=== PATIENT | male | born 1945 | race Caucasian/White ===

== ENCOUNTER 2020-01-13 23:15 | Inpatient (IN) | payer MEDICARE ==
[2020-01-14] MEDS ORDERED: KETOROLAC 30 MG/ML INJ ONE (00:41)
[2020-01-14 00:45] LABS: Urine Blood 2+ (NEG); Urine Glucose NEGATIVE (NEG); Urine Protein 2+ (NEG)
[2020-01-14 01:31] LABS: Absolute Lymphocytes (CBC) 0.7 K/uL (0.7-4.9); Basophils % 0.5 % (0-1.3); Hematocrit 29.6 % (39.6-49.0); Lymphocytes % 4.8 % (15.3-44.8); MPV 7.8 fL (7.6-11.3); RBC Red Blood Cell Count 2.87 M/uL (4.33-5.43)
[2020-01-14] MEDS ORDERED: MORPHINE 2 MG/ML SYR ONE ×2 (01:32→02:19)
[2020-01-14 01:43] LABS: Albumin 3.3 g/dL (3.4-5.0); Bilirubin Direct 0.3 mg/dL (0-0.2); Bilirubin Total 0.6 mg/dL (0.2-1.0); Potassium 4.9 mmol/L (3.5-5.1); Protein, Total 7.5 g/dL (6.4-8.2)
--- NOTE | 2020-01-14 02:09 | ER ---
Nurse's Notes [facility] Name: Omar Hogan Age: 74 yrs Sex: Male : 1945 Arrival Date: 01/13/2020 Time: 23:18 Bed 2 Private MD: Diagnosis: Hypo-osmolality and hyponatremia;Wedge compression fracture of T11-T12 vertebra Presentation: 01/12 23:26 Chief complaint: EMS states: TONED IN FOR LIFT ASSIST. PATIENT FOUND ON THE FLOOR, rv TRYING TO GET UP AND GO TO BED. THEN COMPLAINED OF MID LOWER BACK PAIN, AND ASKED TO BE CHECKED OUT. DENIES LOC OR HEAD INJURY. Coronavirus screen: Client denies travel out of the [place] in the last 14 days. At this time, the client does not indicate any symptoms associated with coronavirus-19. Ebola Screen: No symptoms or risks identified at this time. Initial Sepsis Screen: Does the patient meet any 2 criteria? No. Patient's initial sepsis screen is negative. Does the patient have a suspected source of infection? No. Patient's initial sepsis screen is negative. Risk Assessment: Do you want to hurt yourself or someone else? Patient reports no desire to harm self or others. Onset of symptoms was January 13, 2020 at 22:00. 23:26 Method Of Arrival: EMS: [facility] rv 23:26 Acuity: LINDA 3 rv Triage Assessment: 23:29 General: Appears uncomfortable, Behavior is calm, cooperative. Pain: Complains of pain rv in lumbar area. EENT: No signs and/or symptoms were reported regarding the EENT system. Neuro: Level of Consciousness is awake, alert, obeys commands, Oriented to person, place, time, situation. Cardiovascular: Patient's skin is warm and dry. Respiratory: Airway is patent Respiratory effort is even, unlabored, Breath sounds are clear bilaterally. Derm: Skin is intact. Historical: - Allergies: 23:29 No Known Allergies; rv - PMHx: 23:29 Hypertension; Thyroid problem; rv - PSHx: 23:29 None; rv - Immunization history:: Adult Immunizations up to date. - Social history:: Smoking status: Patient/guardian denies using tobacco, the patient reports quitting approximately 15 years ago. Screenin:30 Abuse screen: Denies threats or abuse. Denies injuries from another. Nutritional rv screening: No deficits noted. Tuberculosis screening: No symptoms or risk factors identified. Fall Risk Fall in past 12 months (25 points). No secondary diagnosis (0 pts). No IV (0 pts). Ambulatory Aid- None/Bed Rest/Nurse Assist (0 pts). Gait- Weak (10 pts.). Mental Status- Overestimates/Forgets Limitations (15 pts.). Total Tena Fall Scale indicates High Risk Score (45 or more points). Fall prevention measures have been instituted. Side Rails Up X 2 Placed Close to Nursing Station Frequent Obs/Assessments Occuring As available patient and family educated on Fall Prevention Program and Strategies. Assessment: 01/13 01:25 Reassessment: CT SCAN REPORT EXPLAINED TO THE PATIENT BY DR CHRISTOPHER. NEW ORDERS rv RECEIVED. LAB TESTS DONE, AWAITING RESULT. PATIENT GIVEN MEDICATION ORDERED. Neuro: Level of Consciousness is awake, alert, obeys commands, Oriented to person, place, time, situation. Respiratory: Airway is patent Respiratory effort is even, unlabored. Musculoskeletal: Reports pain in lumbar area. 02:30 Reassessment: Patient appears in no apparent distress at this time. hospitalist at rr5 bedside examining the patient. Vital Signs: 01/12 23:26 BP 123 / 55; Pulse 72; Resp 18; Temp 97.6; Pulse Ox 98% on R/A; Weight 104.33 kg; rv Height 5 ft. 10 in. (177.80 cm); Pain 5/10; 01/13 00:00 BP 108 / 56; Pulse 76; Resp 18; Pulse Ox 99% on R/A; rv 01:15 BP 121 / 49; Pulse 92; Resp 18; Pulse Ox 97% on R/A; rv 02:00 BP 115 / 54; Pulse 71; Resp 16; Pulse Ox 98% on R/A; rv 03:00 BP 102 / 47; Pulse 74; Resp 18; Temp 98(O); Pulse Ox 98% on R/A; rv 03:54 BP 116 / 60; Pulse 71; Resp 17; Pulse Ox 97% on R/A; rv 01/12 23:26 Body Mass Index 33.00 (104.33 kg, 177.80 cm) rv [place] Coma Score: 00:30 Eye Response: spontaneous(4). Verbal Response: oriented(5). Motor Response: obeys rv commands(6). Total: 15. 01:15 Eye Response: spontaneous(4). Verbal Response: oriented(5). Motor Response: obeys rv commands(6). Total: 15. ED Course: 01/12 23:18 Patient arrived in ED. tw4 23:19 Arie Christopher MD is Attending Physician. tw4 23:26 Leroy Garg RN is Primary Nurse. rv 23:29 Triage completed. rv 23:30 Arm band placed on right wrist. Patient placed in the treatment room, on a stretcher, rv Patient notified of wait time. 23:31 Patient has correct armband on for positive identification. Placed in gown. Bed in low rv position. Call light in reach. Side rails up X2. Pulse ox on. NIBP on. 01/13 00:15 CT Lumbar Spine Wo Con In Process Unspecified. EDMS 00:15 CT Stone Protocol In Process Unspecified. EDMS 01:23 Initial lab(s) drawn, by me, sent to lab. Inserted saline lock: 20 gauge in right rv antecubital area, using aseptic technique. Blood collected. 01:44 Notified ED physician of a critical lab result(s). NA 113, CL 77. sg 02:08 Varun Charles MD is Hospitalizing Provider. tw4 02:35 covid swab sent. rr5 02:45 CT Lumbar Spine Wo Con In Process Unspecified. EDMS 03:51 No provider procedures requiring assistance completed. IV is patent, with fluids rv infusing freely, Patient admitted, IV remains in place. Administered Medications: 00:36 Drug: TORadol 30 mg Route: IM; Site: left deltoid; rr5 01:23 Drug: morphine 2 mg Route: IVP; Site: right antecubital; rv 02:08 Drug: morphine 2 mg Route: IVP; Site: right antecubital; rv 02:08 Follow up: Response: No adverse reaction; RASS: Alert and Calm (0) rv Outcome: 02:08 Decision to Hospitalize by Provider. tw4 03:55 Admitted to Tele accompanied by nurse, via stretcher, room 409, with chart, Report rv called to yvon sanchez 03:55 Condition: good 03:55 Instructed on the need for admit. 03:56 Patient left the ED. rv Signatures: Dispatcher [employer] Seth Akins RN RN sg Arie Christopher MD MD tw4 Leroy Garg, RN RN rv Ki Amaral RN RN rr5
--- NOTE | 2020-01-14 02:09 | EDPHYS ---
Physician Documentation [facility] Name: Omar Hogan Age: 74 yrs Sex: Male : 1945 Arrival Date: 01/13/2020 Time: 23:18 Bed 2 Private MD: ED Physician Arie Cruz Historical: - Allergies: 01/12 23:29 No Known Allergies; rv - PMHx: 23:29 Hypertension; Thyroid problem; rv - PSHx: 23:29 None; rv - Immunization history:: Adult Immunizations up to date. - Social history:: Smoking status: Patient/guardian denies using tobacco, the patient reports quitting approximately 15 years ago. Vital Signs: 23:26 BP 123 / 55; Pulse 72; Resp 18; Temp 97.6; Pulse Ox 98% on R/A; Weight 104.33 kg; rv Height 5 ft. 10 in. (177.80 cm); Pain 5/10; 01/13 00:00 BP 108 / 56; Pulse 76; Resp 18; Pulse Ox 99% on R/A; rv 01:15 BP 121 / 49; Pulse 92; Resp 18; Pulse Ox 97% on R/A; rv 02:00 BP 115 / 54; Pulse 71; Resp 16; Pulse Ox 98% on R/A; rv 03:00 BP 102 / 47; Pulse 74; Resp 18; Temp 98(O); Pulse Ox 98% on R/A; rv 03:54 BP 116 / 60; Pulse 71; Resp 17; Pulse Ox 97% on R/A; rv 01/12 23:26 Body Mass Index 33.00 (104.33 kg, 177.80 cm) rv [place] Coma Score: 00:30 Eye Response: spontaneous(4). Verbal Response: oriented(5). Motor Response: obeys rv commands(6). Total: 15. 01:15 Eye Response: spontaneous(4). Verbal Response: oriented(5). Motor Response: obeys rv commands(6). Total: 15. MDM: 01/12 23:55 Patient medically screened. tw4 01/13 00:38 Order name: Urine Dipstick--Ancillary (enter results); Complete Time: 00:56 mw2 01/13 00:56 Interpretation: Normal except: UPROT 2+; UBLD 2+. tw4 01/13 01:00 Order name: Basic Metabolic Panel; Complete Time: 02:09 tw4 01/13 02:09 Interpretation: Normal except: GLUC 114; CL 77; NA 113; GFR 63. tw4 01/13 01:00 Order name: CBC with Diff; Complete Time: 03:23 tw4 01/13 02:09 Interpretation: Normal except: WBC 14.2; RBC 2.87; HGB 10.5; HCT 29.6; MCV 103.0; MCH tw4 36.6; TWILA% 83.3; NEUT A 11.8; LYM% 4.8; MNA 1.5. 01/13 01:00 Order name: Hepatic Function; Complete Time: 02:09 tw4 01/13 02:09 Interpretation: Normal except: ALK 128; AST 61; BILID 0.3; ALB 3.3; GLOB 4.2; A/G 0.8. tw4 01/13 01:00 Order name: Lipase; Complete Time: 02:09 tw4 01/13 02:09 Interpretation: Normal except: LIP 30. tw4 01/13 01:00 Order name: Alcohol Level; Complete Time: 02:09 tw4 01/12 23:21 Order name: CT Lumbar Spine Wo Con tw4 01/12 23:21 Order name: CT Stone Protocol tw4 01/12 23:21 Order name: Urine Dipstick-Ancillary (obtain specimen); Complete Time: 00:36 tw4 01/13 01:46 Order name: Manual Differential; Complete Time: 03:23 EDMS 01/13 03:23 Interpretation: Normal except: SEGS 88; LYM 4; BANDS [F] 2. tw4 01/13 02:16 Order name: COVID-19 rv 01/13 02:17 Order name: CT Lumbar Spine Wo Con tw4 01/13 01:00 Order name: IV Saline Lock; Complete Time: 01:23 tw4 01/13 01:00 Order name: Labs collected and sent; Complete Time: 01:23 tw4 01/13 01:44 Order name: Seizure Precautions; Complete Time: 01:49 sg Administered Medications: 01/13 00:36 Drug: TORadol 30 mg Route: IM; Site: left deltoid; rr5 01:23 Drug: morphine 2 mg Route: IVP; Site: right antecubital; rv 02:08 Drug: morphine 2 mg Route: IVP; Site: right antecubital; rv 02:08 Follow up: Response: No adverse reaction; RASS: Alert and Calm (0) rv Disposition: 01/14/20 02:08 Hospitalization ordered by Varun Charles for Inpatient Admission. Preliminary diagnosis are Hypo-osmolality and hyponatremia, Wedge compression fracture of T11-T12 vertebra. - Bed requested for Telemetry/MedSurg (Inpatient). - Status is Inpatient Admission. rv - Condition is Fair. - Problem is new. - Symptoms are unchanged. Signatures: Dispatcher [employer] EDMS Padmini Garcia RN Seth Valiente RN Arie Hernandez MD MD tw4 Leroy Garg RN RN rv Roque, Raymond, RN RN rr5 Corrections: (The following items were deleted from the chart) 02:09 02:09 Normal except: WBC 14.2; RBC 2.87; HGB 10.5; HCT 29.6; MCV 103.0; MCH 36.6. tw4 tw4 03:21 02:08 Hospitalization Ordered by Varun Charles MD for Inpatient Admission. Preliminary kl diagnosis is Hypo-osmolality and hyponatremia; Wedge compression fracture of T11-T12 vertebra. Bed requested for Telemetry/MedSurg (Inpatient). Status is Inpatient Admission. Condition is Fair. Problem is new. Symptoms are unchanged. tw4 03:56 03:21 01/14/2020 02:08 Hospitalization Ordered by Varun Charles MD for Inpatient rv Admission. Preliminary diagnosis is Hypo-osmolality and hyponatremia; Wedge compression fracture of T11-T12 vertebra. Bed requested for Telemetry/MedSurg (Inpatient). Status is Inpatient Admission. Condition is Fair. Problem is new. Symptoms are unchanged. kl
[2020-01-14 02:13] LABS: Blood Morphology Comment NOT SEEN (NOT SEEN); Platelet Estimate ADEQ
[2020-01-14] MEDS ORDERED: ACETAMINOPHEN 500 MG TAB PO PRN (02:58)
[2020-01-14] MEDS ORDERED: ZOLPIDEM TARTRATE 5 MG TABLET PO PRN (02:58)
[2020-01-14] MEDS ORDERED: NA CHLORIDE 0.9% 1,000 ML IV SCH (03:00)
[2020-01-14] MEDS ORDERED: HYDROCODONE/APAP 7.5/325 MG TAB PO PRN (03:04)
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
[2020-01-14 05:01] VITALS: BMI 33.0
[2020-01-14] MEDS ORDERED: LORazepam 2 MG/ML VIAL IV PRN ×2 (05:46→09:43)
[2020-01-14] MEDS ORDERED: MORPHINE 2 MG/ML SYR IV PRN (06:12)
[2020-01-14] MEDS: INSULIN -REGULAR HUMAN 50 UNIT/0.5 ML ML SQ SCH ×4 (07:30→20:00)
[2020-01-14 07:45] LABS: Potassium 5.4 mmol/L (3.5-5.1)
[2020-01-14] MEDS: MULTIVITAMIN TAB PO SCH (08:14)
[2020-01-14] MEDS: THIAMINE HCL 100 MG TABLET PO SCH (08:14)
[2020-01-14] MEDS: HEPARIN 5000 UNIT/ML 1 ML VIAL SQ SCH ×2 (08:15→16:59)
[2020-01-14] MEDS ORDERED: PNEUMOCOCCAL VACCINE 0.5 ML IMVAC ONE (09:00)
--- NOTE | 2020-01-14 12:21 | RAD REPORT ---
EXAM DESCRIPTION: CT - Spine Lumbar Wo Con - 01/14/2020 6:49 am CLINICAL HISTORY: The patient is 74 years old and is Male; Pain;Lower back pain TECHNIQUE: Axial computed tomography images of the lumbar spine without intravenous contrast. Sagi ttal and coronal reformatted images were created and reviewed. This CT exam was performed using one or more of the following dose reduction techniques: automated exposure control, adjustment of the mA and/or kV according to patient size, and/or use of iterative reconstruction technique. COMPARISON: No relevant prior studies available. FINDINGS: VERTEBRAE: Acute fracture involving the superior endplate of L1 extending through the in tervertebral disc space at T12-L1 is noted. The vertebral body heights are otherwise maintained. No o ther fracture is seen. DISCS/SPINAL CANAL/NEURAL FORAMINA: Multilevel intervertebral disc space narrowing with osteophy te formation and facet arthropathy is noted throughout the lumbar spine. SOFT TISSUES: The soft tissues are normal. VASCULATURE: Atherosclerosis of the vasculature is present. Evidence of an aortoiliac bypass gra ft is noted. IMPRESSION: Acute fracture involving the superior endplate of L1 with extension in the intervertebra l disc space at T12-L1. Electronically signed by: Yeny Santa MD 01/14/2020 3:15 AM CDT Due to temporary technical issues with the PACS/Fluency reporting system, reports are being signed by the in house radiologist without review as a courtesy to ensure prompt reporting. The interpreting r adiologist is fully responsible for the content of the report.
--- NOTE | 2020-01-14 12:25 | RAD REPORT ---
EXAM DESCRIPTION: CT - Stone Protocol - 01/14/2020 6:50 am CLINICAL HISTORY: PAIN TECHNIQUE: Contiguous axial images obtained through the abdomen and pelvis without IV contrast. Han nal and sagittal reformatted images were provided. This exam was performed according to our departmental dose-optimization program, which includes autom ated exposure control, adjustment of the mA and/or kV according to patient size and/or use of iterati ve reconstruction technique. COMPARISON: None available for comparison. FINDINGS: Lung bases: No focal consolidation. The heart is enlarged. Coronary artery calcification. Liver: The liver is enlarged. Gallbladder and biliary system: Unremarkable Pancreas: Moderate pancreatic parenchymal atrophy. Spleen: Grossly unremarkable Adrenals: Unremarkable Kidneys: Left renal cysts measuring 1.7 cm at the anterolateral mid pole and 2.8 cm at the posterior lower pole. No calculi. No hydronephrosis. Bowel: Moderate stool throughout the large bowel. Colonic diverticula without adjacent inflammatory c hange. No obstruction. No appreciable mucosal thickening. Appendix: Normal caliber appendix. No findings to suggest acute appendicitis. Urinary bladder: Distended Reproductive: Unremarkable as visualized Lymph nodes: No pathologically enlarged lymph nodes. Peritoneum: No focal fluid collection. No free air. Vessels: Moderate atherosclerotic disease. Aortobiiliac endograft. Fusiform abdominal aortic aneurysm measuring 5.8 cm in maximum diameter. Abdominal wall: Small fat-containing umbilical hernia. Bones: Remote bilateral rib fractures. Multilevel spondylosis. Fracture at T12-L1 extending through t he intervertebral disc space, the anterior osteophytes and along the superior aspect of the L1 verteb ral body. Bilateral femoral head avascular necrosis. Remote right iliac bone deformity. IMPRESSION: 1. Moderate stool throughout the large bowel. No obstruction. 2. Age-indeterminate fracture at the T12-L1 level extending through the disc space, the anterior os teophytes and along the superior aspect of the L1 vertebral body. 3. Abdominal aortic aneurysm measuring 5.8 cm in maximum diameter. Aortobiiliac endograft in place. If prior studies exist, direct comparison would be of considerable value. Recommend referral to a va scular specialist. (J Am Pedrito Radiol 2013;10 (10):789-794.) 4. Other findings as above. Electronically signed by: Kelton Erwin MD 01/14/2020 12:32 AM CDT Due to temporary technical issues with the PACS/Fluency reporting system, reports are being signed by the in house radiologist without review as a courtesy to ensure prompt reporting. The interpreting r adiologist is fully responsible for the content of the report.
[2020-01-14 15:19] LABS: Urine Appearance CLEAR; Urine Bilirubin NEGATIVE (NEG); Urine Blood TRACE (NEG); Urine Color YELLOW; Urine Glucose NEGATIVE (NEG); Urine Protein 1+ (NEG); Urine Specific Gravity <=1.005 (1.005-1.030); Urine Urobilinogen 0.2 mg/dL (0.2-1.0)
[2020-01-14 15:35] LABS: Urine Microscopic Reflex ORDER UMIC
[2020-01-14 16:12] LABS: Potassium 5.4 mmol/L (3.5-5.1)
[2020-01-14 17:04] LABS: Urine Bacteria <20 /HPF (NONE SEEN); Urine Culture Reflex Order NOT NEEDED; Urine Mucus 1+ /HPF (NONE SEEN)
[2020-01-14] MEDS: HYDROCODONE/APAP 10/325 TAB PO PRN ×2 (17:05→20:37)
[2020-01-14 19:35] LABS: Potassium 5.2 mmol/L (3.5-5.1)
[2020-01-14] MEDS: TAMSULOSIN 0.4 MG SR CAP PO SCH (20:36)
[2020-01-14] MEDS: ZOLPIDEM TARTRATE 5 MG TABLET PO SCH (20:37)
[2020-01-14] MEDS: ENALAPRIL 10 MG TAB PO SCH (20:37)
[2020-01-15] MEDS: HEPARIN 5000 UNIT/ML 1 ML VIAL SQ SCH ×3 (00:04→16:12)
[2020-01-15 02:32] LABS: Potassium 5.4 mmol/L (3.5-5.1)
[2020-01-15] MEDS: LEVOTHYROXINE SOD 0.075 MG TAB PO SCH (06:05)
[2020-01-15] MEDS: LEVOTHYROXINE SOD 0.1 MG TAB PO SCH (06:05)
[2020-01-15 06:50] LABS: Absolute Lymphocytes (CBC) 0.6 K/uL (0.7-4.9); Basophils % 0.6 % (0-1.3); Hematocrit 30.8 % (39.6-49.0); Lymphocytes % 4.5 % (15.3-44.8); MPV 8.8 fL (7.6-11.3); Protime INR 0.91; RBC Red Blood Cell Count 2.97 M/uL (4.33-5.43)
[2020-01-15 07:00] LABS: Magnesium 2.3 mg/dL (1.8-2.4); Potassium 5.1 mmol/L (3.5-5.1)
[2020-01-15 07:29] LABS: Platelet Estimate ADEQ; White Blood Cell Scan OK (OK)
[2020-01-15 07:30] LABS: Blood Morphology Comment NOT SEEN (NOT SEEN); Platelets, Giant FEW
[2020-01-15] MEDS: INSULIN -REGULAR HUMAN 50 UNIT/0.5 ML ML SQ SCH ×4 (07:30→20:54)
[2020-01-15] MEDS: ENALAPRIL 10 MG TAB PO SCH ×2 (09:00→20:53)
[2020-01-15] MEDS ORDERED: LEVOTHYROXINE SOD 0.075 MG TAB PO SCH (09:00)
[2020-01-15] MEDS: MULTIVITAMIN TAB PO SCH (09:01)
[2020-01-15] MEDS: THIAMINE HCL 100 MG TABLET PO SCH (09:01)
[2020-01-15] MEDS: ATORVASTATIN 20 MG TAB PO SCH (09:02)
[2020-01-15] MEDS: TAMSULOSIN 0.4 MG SR CAP PO SCH ×2 (09:06→20:53)
[2020-01-15] MEDS: allopurinoL 300 MG TAB PO SCH (09:07)
[2020-01-15] MEDS: HYDROCODONE/APAP 10/325 TAB PO PRN ×3 (09:26→20:52)
--- NOTE | 2020-01-15 09:32 | P.PN ---
Subjective Date of Service: 01/15/20 Chief Complaint: Hyponatremia Subjective: Improving (Delirium overnight. Mental status near baseline this morning. No need for restraints.) Physical Examination - Vital Signs Temperature: 97.7 F Blood Pressure: 97/52 Pulse: 77 Respirations: 18 Pulse Ox (%): 96 - Physical Exam General: In no apparent distress, Cooperative HEENT: Atraumatic, Normocephalic, EOMI Neck: Supple Respiratory: Clear to auscultation bilaterally, Normal air movement Cardiovascular: No edema, Normal pulses, Regular rate/rhythm, Normal S1 S2 Gastrointestinal: Normal bowel sounds, Soft and benign, Non-distended, No tenderness Musculoskeletal: Other (Decreased range of motion in both lower extremities) Integumentary: No rashes, No breakdown, No significant lesion, No tenderness/swelling, No erythema, No warmth, No cyanosis Neurological: Normal speech, Sensation intact - Studies Laboratory Data (last 24 hrs) 01/14/20 10:56: Sodium 114 L*, Potassium 5.0, BUN 16, Creatinine 1.24, Glucose 110 H Microbiology Data (last 24 hrs): 01/14/20 02:16 Nasopharnyx Coronavirus COVID-19 PCR - Final Assessment & Plan - Problems (Diagnosis) (1) Acute metabolic encephalopathy Current Visit: Yes Status: Acute (2) Hyponatremia Current Visit: Yes Status: Acute (3) Chronic alcoholism Current Visit: Yes Status: Acute Physician Review Additional Text: Assessment Patient is 74-year-old male with a past medical history of excessive alcohol consumption brought into the hospital with encephalopathy. Was severely hyponatremia with a sodium of 113. Na+ currently improving with fluid restriction. His hospital course has been complicated by delirium overnight and mild physical deconditioning. No signs of alcohol withdrawal during our encounter Metabolic encephalopathy Acute hyponatremia plan: Continue fluid restriction Will assess appropriateness of salt tab if needed PT/OT while in-house Start folic acid, thiamine and multivitamin
[2020-01-15 10:32] LABS: Potassium 4.7 mmol/L (3.5-5.1)
[2020-01-15 14:42] LABS: Potassium 5.5 mmol/L (3.5-5.1)
[2020-01-15] MEDS ORDERED: INFLUENZA VACCINE (for 3y+) 0.5 ML DOSE IMVAC ONE (15:00)
[2020-01-15] MEDS ORDERED: PNEUMOCOCCAL VACCINE 0.5 ML IMVAC ONE (15:00)
[2020-01-15 19:01] LABS: Potassium 4.9 mmol/L (3.5-5.1)
[2020-01-15] MEDS: ZOLPIDEM TARTRATE 5 MG TABLET PO SCH (20:53)
[2020-01-15 23:38] LABS: Potassium 4.9 mmol/L (3.5-5.1)
[2020-01-16] MEDS: HYDROCODONE/APAP 10/325 TAB PO PRN ×3 (00:24→21:41)
[2020-01-16] MEDS: HEPARIN 5000 UNIT/ML 1 ML VIAL SQ SCH ×3 (00:25→16:53)
[2020-01-16] MEDS: LEVOTHYROXINE SOD 0.075 MG TAB PO SCH (05:51)
[2020-01-16] MEDS: LEVOTHYROXINE SOD 0.1 MG TAB PO SCH (05:51)
[2020-01-16 07:10] LABS: Potassium 5.2 mmol/L (3.5-5.1)
[2020-01-16] MEDS: INSULIN -REGULAR HUMAN 50 UNIT/0.5 ML ML SQ SCH ×4 (07:30→21:00)
[2020-01-16] MEDS: TAMSULOSIN 0.4 MG SR CAP PO SCH ×2 (08:44→21:09)
[2020-01-16] MEDS: ATORVASTATIN 20 MG TAB PO SCH (08:44)
[2020-01-16] MEDS: MULTIVITAMIN TAB PO SCH (08:44)
[2020-01-16] MEDS: THIAMINE HCL 100 MG TABLET PO SCH (08:44)
[2020-01-16] MEDS: allopurinoL 300 MG TAB PO SCH (08:44)
[2020-01-16] MEDS: SODIUM CHLORIDE 1 GM TAB PO SCH ×2 (08:50→16:59)
--- NOTE | 2020-01-16 11:07 | P.PN ---
Subjective Date of Service: 01/16/20 Chief Complaint: Hyponatremia Subjective: Improving Physical Examination - Vital Signs Temperature: 97.1 F Blood Pressure: 102/57 Pulse: 73 Respirations: 18 Pulse Ox (%): 92 - Physical Exam General: Cooperative, Other (physical deconditioning) Neck: Supple Respiratory: Clear to auscultation bilaterally, Normal air movement Cardiovascular: No edema, Normal pulses, Normal S1 S2 Gastrointestinal: Normal bowel sounds, Soft and benign, Non-distended Neurological: Normal speech, Sensation intact, Normal affect Assessment & Plan - Problems (Diagnosis) (1) Acute metabolic encephalopathy Current Visit: Yes Status: Acute (2) Hyponatremia Current Visit: Yes Status: Acute (3) Chronic alcoholism Current Visit: Yes Status: Acute Physician Review Additional Text: Assessment Patient is 74-year-old male with a past medical history of excessive alcohol consumption brought into the hospital with encephalopathy. Was severely hyponatremia with a sodium of 113. Na+ currently improving with fluid restriction. His hospital course has been complicated by delirium overnight and mild physical deconditioning. No signs of alcohol withdrawal during our encounter Metabolic encephalopathy Acute hyponatremia Physical deconditioning plan: Continue fluid restriction Continue salt tab Continue folic acid, thiamine and multivitamin PT/OT while in-house
[2020-01-16 14:04] LABS: Potassium 5.7 mmol/L (3.5-5.1)
[2020-01-16] MEDS ORDERED: SOD POLYSTYREN SUL 15 GM/60 ML UCUP PO ONE (14:17)
[2020-01-16] MEDS ORDERED: NA CHLORIDE 0.9% 1,000 ML IV SCH (15:00)
[2020-01-16 17:24] LABS: Urine Protein/Creatinine Ratio 0.63 ratio (<0.15)
[2020-01-16 17:54] LABS: Urine Appearance CLEAR; Urine Bilirubin NEGATIVE (NEG); Urine Blood NEGATIVE (NEG); Urine Color YELLOW; Urine Glucose NEGATIVE (NEG); Urine Protein 1+ (NEG); Urine pH 5.5 (5.0-7.0)
[2020-01-16 18:03] LABS: Urine Bacteria <20 /HPF (NONE SEEN); Urine Culture Reflex Order REFLEXED; Urine RBC NONE SEEN /HPF (NONE SEEN)
[2020-01-16 18:09] LABS: Potassium 4.8 mmol/L (3.5-5.1)
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
--- NOTE | 2020-01-16 21:03 | RAD REPORT ---
EXAM DESCRIPTION: US - Renal Ultrasound-Complete - 01/16/2020 8:33 pm CLINICAL HISTORY: . Acute renal failure COMPARISON: None. FINDINGS: The right kidney measures 9 cm with a normal echotexture. The left kidney measures 10 cm with a normal echotexture. Two cysts. The largest measures 2.6 centime ters Hydronephrosis is not seen. No gross abnormality of bladder IMPRESSION: Left renal cysts
[2020-01-16] MEDS: ZOLPIDEM TARTRATE 5 MG TABLET PO SCH (21:09)
[2020-01-16 22:13] LABS: Potassium 4.9 mmol/L (3.5-5.1)
[2020-01-17] MEDS: HEPARIN 5000 UNIT/ML 1 ML VIAL SQ SCH ×3 (01:14→16:18)
[2020-01-17 01:55] LABS: Potassium 4.8 mmol/L (3.5-5.1)
[2020-01-17] MEDS: HYDROCODONE/APAP 10/325 TAB PO PRN ×2 (03:05→14:52)
[2020-01-17] MEDS: LEVOTHYROXINE SOD 0.1 MG TAB PO SCH (05:40)
[2020-01-17] MEDS: LEVOTHYROXINE SOD 0.075 MG TAB PO SCH (05:40)
[2020-01-17 06:48] LABS: Albumin 3.1 g/dL (3.4-5.0); Magnesium 2.4 mg/dL (1.8-2.4); Potassium 4.8 mmol/L (3.5-5.1); Uric Acid 5.1 mg/dL (3.5-7.2)
[2020-01-17 06:49] LABS: Thyroid Stimulating Hormone 5.6 uIU/mL (0.360-3.740)
[2020-01-17] MEDS: INSULIN -REGULAR HUMAN 50 UNIT/0.5 ML ML SQ SCH ×4 (07:30→20:23)
[2020-01-17] MEDS: IPRATROPIUM BROM 0.5MG/2.5ML NEB PRN ×2 (07:55→13:45)
[2020-01-17] MEDS: ALBUTEROL 2.5 MG/3 ML NEB SOL NEB PRN ×2 (07:55→13:45)
[2020-01-17] MEDS: THIAMINE HCL 100 MG TABLET PO SCH (08:10)
[2020-01-17] MEDS: FUROSEMIDE 20 MG TABLET PO SCH (08:10)
[2020-01-17] MEDS: allopurinoL 300 MG TAB PO SCH (08:10)
[2020-01-17] MEDS: MULTIVITAMIN TAB PO SCH (08:10)
[2020-01-17] MEDS: SODIUM CHLORIDE 1 GM TAB PO SCH ×2 (08:11→16:18)
[2020-01-17] MEDS: ATORVASTATIN 20 MG TAB PO SCH (08:11)
[2020-01-17] MEDS: TAMSULOSIN 0.4 MG SR CAP PO SCH ×2 (08:11→20:23)
[2020-01-17 08:37] LABS: Absolute Lymphocytes (CBC) 0.8 K/uL (0.7-4.9); Basophils % 0.8 % (0-1.3); Hematocrit 28.2 % (39.6-49.0); Lymphocytes % 6.3 % (15.3-44.8); MPV 8.1 fL (7.6-11.3); RBC Red Blood Cell Count 2.72 M/uL (4.33-5.43)
[2020-01-17 09:29] LABS: Potassium 4.5 mmol/L (3.5-5.1)
--- NOTE | 2020-01-17 09:46 | P.PN ---
Subjective Date of Service: 01/17/20 Chief Complaint: Hyponatremia Subjective: Other (Is having audible wheezing. RT consulted. Duo nebs ordered. Chest x-ray pending.) Physical Examination - Vital Signs Temperature: 96.8 F Blood Pressure: 130/91 Pulse: 77 Respirations: 20 Pulse Ox (%): 91 - Physical Exam General: Cooperative, Mild distress, Obese HEENT: Atraumatic, Normocephalic, EOMI Neck: Supple Respiratory: Diminished, Inspiratory wheezes Cardiovascular: No edema, Normal pulses, Regular rate/rhythm, Normal S1 S2 Gastrointestinal: Normal bowel sounds, Soft and benign, Non-distended, No tenderness Musculoskeletal: No clubbing, No swelling, No contractures, No erythema, No tenderness, No warmth Integumentary: No rashes, No breakdown, No significant lesion, No tenderness/swelling, No erythema, No warmth, No cyanosis Neurological: Normal speech, Sensation intact, Normal affect Assessment & Plan - Problems (Diagnosis) (1) Acute metabolic encephalopathy Current Visit: Yes Status: Acute (2) Hyponatremia Current Visit: Yes Status: Acute (3) Chronic alcoholism Current Visit: Yes Status: Acute Physician Review Additional Text: Assessment Patient is 74-year-old male with a past medical history of excessive alcohol consumption brought into the hospital with encephalopathy. Was severely hyponatremia with a sodium of 113. Na+ currently improving with fluid restriction. His hospital course has been complicated by delirium overnight and mild physical deconditioning. No signs of alcohol withdrawal during our encounter. Patient is having some respiratory distress today. Metabolic encephalopathy - resolved Acute hyponatremia Leukocytosis Physical deconditioning Acute respiratory distress plan: Obtain a CXR. Start patient on duonebs Leukocytosis is concerning. There is a urine culture pending since 01/14 Continue fluid restriction Continue salt tab Continue folic acid, thiamine and multivitamin PT/OT while in-house
--- NOTE | 2020-01-17 11:32 | RAD REPORT ---
EXAM DESCRIPTION: Michael Single View01/17/2020 10:58 am CLINICAL HISTORY: Shortness breath COMPARISON: 2014 FINDINGS: Right upper lobe is mildly hazy Remainder of the lungs appear clear of acute infiltrate. Lungs are hyperaerated. Heart is probably up per limits normal size IMPRESSION: Right upper lobe is mildly hazy which may indicate mild pneumonia
[2020-01-17 12:58] LABS: Potassium 4.5 mmol/L (3.5-5.1)
--- NOTE | 2020-01-17 13:29 | PN ---
Date of Progress Note: 01/17/2020 Subjective: The patient was admitted with alcoholic hyponatremia. The patient yesterday started on salt tablet and we added Lasix, discontinued IV fluid. Sodium started trending up, changing from yesterday 120, today 127. The patient is feeling better. Physical Examination: Vital Signs: When I saw the patient, blood pressure 122/56, pulse of 78, afebrile. Chest: Clear to auscultation. Heart: S1, S2. Regular. Abdomen: Morbidly obese. Could not appreciate any organomegaly. Extremities: Trace edema. Neuro: Alert. No focality. Laboratory Data: WBC 13, H and H 9.9/28. Sodium 127, potassium 4.9, bicarb 29, BUN 25, creatinine 1.6. Assessment And Plan: 1. 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 Responds to current regimen. I am going to continue Lasix at 20 with salt tablet 1 tablet 1 g b.i.d. We will continue to monitor. Sodium continued to trend up. The patient is going to be cleared from the Renal standpoint if sodium exceeds 130. 2. Hypertension, controlled, optimal. Continue current treatment. 3. Alcoholic abuse. Follow up with primary. 4. Acute kidney injury secondary to prerenal, recovered. Time spent coordinating the care, discuss him with all of our team members including othere principal consultant and hospitalist and [id number] with the patient and please go out of 35 min AMINA Voice ID: [id number] Report ID: [id number] NGHIA
[2020-01-17] MEDS ORDERED: HEPARIN 5000 UNIT/ML 1 ML VIAL ONE (16:21)
[2020-01-17 16:43] LABS: Potassium 4.3 mmol/L (3.5-5.1)
[2020-01-17] MEDS: ZOLPIDEM TARTRATE 5 MG TABLET PO SCH (20:23)
[2020-01-17 20:48] LABS: Potassium 4.5 mmol/L (3.5-5.1)
[2020-01-18] MEDS: HEPARIN 5000 UNIT/ML 1 ML VIAL SQ SCH ×3 (00:28→17:40)
[2020-01-18 00:49] LABS: Potassium 4.5 mmol/L (3.5-5.1)
[2020-01-18 05:19] LABS: Albumin 2.9 g/dL (3.4-5.0); Magnesium 2.2 mg/dL (1.8-2.4); Potassium 4.6 mmol/L (3.5-5.1)
[2020-01-18] MEDS: LEVOTHYROXINE SOD 0.1 MG TAB PO SCH (05:34)
[2020-01-18] MEDS: LEVOTHYROXINE SOD 0.075 MG TAB PO SCH (05:34)
[2020-01-18 07:00] LABS: Absolute Lymphocytes (CBC) 0.7 K/uL (0.7-4.9); Basophils % 0.3 % (0-1.3); Hematocrit 25.9 % (39.6-49.0); Lymphocytes % 5.7 % (15.3-44.8); MPV 7.9 fL (7.6-11.3); RBC Red Blood Cell Count 2.47 M/uL (4.33-5.43)
[2020-01-18] MEDS: INSULIN -REGULAR HUMAN 50 UNIT/0.5 ML ML SQ SCH ×4 (07:30→20:07)
[2020-01-18] MEDS: FUROSEMIDE 20 MG TABLET PO SCH (07:46)
[2020-01-18] MEDS: TAMSULOSIN 0.4 MG SR CAP PO SCH ×2 (07:46→20:00)
[2020-01-18] MEDS: SODIUM CHLORIDE 1 GM TAB PO SCH ×2 (07:46→17:40)
[2020-01-18] MEDS: MULTIVITAMIN TAB PO SCH (07:46)
[2020-01-18] MEDS: allopurinoL 300 MG TAB PO SCH (07:46)
[2020-01-18] MEDS: THIAMINE HCL 100 MG TABLET PO SCH (07:46)
[2020-01-18] MEDS: ATORVASTATIN 20 MG TAB PO SCH (07:46)
[2020-01-18] MEDS: HYDROCODONE/APAP 10/325 TAB PO PRN ×2 (07:51→17:45)
[2020-01-18 08:56] LABS: Blood Morphology Comment NOT SEEN (NOT SEEN); Platelet Estimate DECR
[2020-01-18] MEDS: ALBUTEROL 2.5 MG/3 ML NEB SOL NEB PRN ×2 (09:06→19:50)
[2020-01-18] MEDS: IPRATROPIUM BROM 0.5MG/2.5ML NEB PRN ×2 (09:06→19:50)
[2020-01-18 09:42] LABS: Potassium 4.3 mmol/L (3.5-5.1)
[2020-01-18 13:42] LABS: Potassium 4.3 mmol/L (3.5-5.1)
--- NOTE | 2020-01-18 15:11 | P.PN ---
Subjective Date of Service: 01/18/20 Chief Complaint: Hyponatremia Subjective: No new changes, Other (Patient continues to have audible wheezing. A stat x-ray yesterday showed mild with pneumonia. Currently on levofloxacin. None requiring supplemental oxygen via nasal cannula. Duo nebs p.r.n. on board.) Physical Examination - Vital Signs Temperature: 98.1 F Blood Pressure: 124/60 Pulse: 78 Respirations: 20 Pulse Ox (%): 94 - Physical Exam General: In no apparent distress, Cooperative, Obese HEENT: Atraumatic, Normocephalic, EOMI Neck: Supple Respiratory: Diminished, Expiratory wheezes Cardiovascular: No edema, Normal pulses, Regular rate/rhythm, Normal S1 S2 Gastrointestinal: Normal bowel sounds, Soft and benign, Non-distended Neurological: Normal speech, Sensation intact, Normal affect Assessment & Plan - Problems (Diagnosis) (1) Acute metabolic encephalopathy Current Visit: Yes Status: Acute (2) Hyponatremia Current Visit: Yes Status: Acute (3) Chronic alcoholism Current Visit: Yes Status: Acute Physician Review Additional Text: Assessment Patient is 74-year-old male with a past medical history of excessive alcohol consumption brought into the hospital with encephalopathy. Was severely hyponatremia with a sodium of 113. Na+ currently improving with fluid restriction and salt tablets. His hospital course has been complicated by delirium overnight and mild physical deconditioning. He is also having mild wheezing. A chest x-ray was concerning for mild pneumonia Metabolic encephalopathy - resolved Pneumonia Acute hyponatremia Leukocytosis Physical deconditioning Acute respiratory distress plan: Start levofloxacin for pneumonia UTI has been ruled out Continue duo nebs p.r.n. Continue physical therapy while in house Leukocytosis is he is improving Continue fluid restriction and salt tab Continue folic acid, thiamine and multivitamin PT/OT while in-house Patient is pending approval for SNF
[2020-01-18] MEDS ORDERED: Levofloxacin 750mg IV 750 MG/150 ML BAG IV SCH (16:00)
[2020-01-18 19:24] LABS: Potassium 4.2 mmol/L (3.5-5.1)
[2020-01-18] MEDS: MORPHINE 2 MG/ML SYR IV PRN (20:00)
[2020-01-18] MEDS: ZOLPIDEM TARTRATE 5 MG TABLET PO SCH (20:03)
[2020-01-18 21:19] LABS: Potassium 4.2 mmol/L (3.5-5.1)
--- NOTE | 2020-01-18 22:47 | PN ---
Date of Progress Note: 01/18/2020 Chief Complaint: Hyponatremia, hypoosmolar. Subjective: The patient has history of alcohol abuse. The patient was started on sodium chloride ta blet and Lasix was added. IV fluids were stopped. The patient is on sodium chloride tablets. Sodiu m level is gradually improving. Review of Systems: Denies PND or orthopnea. Physical Examination: Lungs: Diminished breath sounds at bases. Heart: S1, S2. Abdomen: Soft, benign. Extremities: Trace edema. Laboratory Data: Sodium 128, potassium 4.2, chloride 92, CO2 31, BUN 18, creatinine 1.33, glucose 14 4. Impression And Plan: 1.Hyponatremia, hypoosmolar, moderately severe. The patient is currently asymptomatic. He was ijeoma edmundo with sodium chloride tablets and p.o. fluid restriction. The patient will have Lasix to prevent fluid overload. Plan is to closely monitor electrolytes. The patient has history of alcohol abuse. Monitor magnesium and phosphorus level. Adjust treatment with replacement as needed. 2.Acute kidney injury secondary to prerenal azotemia, improving. 3.Hypertension. Blood pressure controlled. Continue current treatment. EB/MODL Voice ID: [id number] Report ID: [id number]
[2020-01-19] MEDS: HEPARIN 5000 UNIT/ML 1 ML VIAL SQ SCH ×3 (00:31→16:15)
[2020-01-19] MEDS: MORPHINE 2 MG/ML SYR IV PRN ×6 (00:32→20:23)
[2020-01-19 01:39] LABS: Potassium 4.1 mmol/L (3.5-5.1)
[2020-01-19] MEDS: LEVOTHYROXINE SOD 0.1 MG TAB PO SCH (05:06)
[2020-01-19] MEDS: LEVOTHYROXINE SOD 0.075 MG TAB PO SCH (05:06)
[2020-01-19 05:23] LABS: Albumin 2.6 g/dL (3.4-5.0); Magnesium 1.9 mg/dL (1.8-2.4); Phosphorus 2.7 mg/dL (2.5-4.9); Potassium 4.2 mmol/L (3.5-5.1)
[2020-01-19] MEDS ORDERED: POLYETHYL GLY 3350 17 GM/DOSE PO PRN (07:08)
[2020-01-19] MEDS ORDERED: DOCUSATE NA 100 MG CAP PO PRN (07:08)
[2020-01-19] MEDS: INSULIN -REGULAR HUMAN 50 UNIT/0.5 ML ML SQ SCH ×4 (07:30→20:20)
[2020-01-19] MEDS: SODIUM CHLORIDE 1 GM TAB PO SCH ×3 (08:43→20:19)
[2020-01-19] MEDS: THIAMINE HCL 100 MG TABLET PO SCH (08:43)
[2020-01-19] MEDS: FUROSEMIDE 20 MG TABLET PO SCH (08:43)
[2020-01-19] MEDS: allopurinoL 300 MG TAB PO SCH (08:43)
[2020-01-19] MEDS: ATORVASTATIN 20 MG TAB PO SCH (08:43)
[2020-01-19] MEDS: TAMSULOSIN 0.4 MG SR CAP PO SCH ×2 (08:43→20:19)
[2020-01-19] MEDS: MULTIVITAMIN TAB PO SCH (08:44)
--- NOTE | 2020-01-19 11:10 | P.PN ---
Subjective Date of Service: 01/19/20 Chief Complaint: Hyponatremia Subjective: Other (reports some shortness of breath this morning, on 4.5L NC denies confusion, chest pain, abdominal pain) Physical Examination - Vital Signs Temperature: 97 F Blood Pressure: 134/58 Pulse: 78 Respirations: 18 Pulse Ox (%): 99 - Physical Exam General: Alert, In no apparent distress Neck: No LAD Respiratory: Diminished, Expiratory wheezes (mild, diffuse) Cardiovascular: No edema, Regular rate/rhythm Gastrointestinal: Soft and benign, Non-distended, No tenderness Musculoskeletal: No tenderness Integumentary: No rashes Neurological: Normal speech, Normal affect Assessment & Plan Physician Review Additional Text: Assessment Patient is 74-year-old male with a past medical history of excessive alcohol consumption brought into the hospital with encephalopathy. Was severely hyponatremia with a sodium of 113. Na+ currently improving with fluid restriction and salt tablets. His hospital course has been complicated by delirium overnight and mild physical deconditioning. He is also having mild wheezing. A chest x-ray was concerning for mild pneumonia Metabolic encephalopathy - resolved Pneumonia Acute hyponatremia Leukocytosis Physical deconditioning Acute respiratory distress Plan: Levaquin Day 2 for pneumonia, leukocytosis improving UTI ruled out will obtain CXR today for worsening SOB; pt with b/l wheeze on exam and former smoker for many years, likely component of COPD Continue duo nebs p.r.n., may benefit from steroids if continues to have shortness of breath Continue fluid restriction and salt tab, Lasix 20mg PO daily per nephrology Continue folic acid, thiamine and multivitamin continue PT/OT; awaiting approval for SNF Dispo: pending SNF approval and improvement of hyponatremia, nephrology recommends > 130 prior to discharge Time Spent Managing Pts Care (In Minutes): 35
--- NOTE | 2020-01-19 11:42 | RAD REPORT ---
EXAM DESCRIPTION: RAD - Chest Single View - 01/19/2020 11:28 am CLINICAL HISTORY: hypoxia, wheeze Chest pain. COMPARISON: Chest Single View dated 01/17/2020; CHEST PA AND LAT 2 VIEW dated 04/16/2014; CHEST PA AND LAT 2 VIEW dated 10/21/2009; CHEST PA AND LAT 2 VIEW dated 04/27/2009; Stone Protocol dated 01/13/2020; Spine Lumbar Wo Con dated 01/13/2020 FINDINGS: Portable technique limits examination quality. No significant change is seen in the mild interstitial prominence in the right apex since 01/17/2020. The heart is mildly enlarged in size. Slightly tortuous thoracic aorta is seen with mild displacemen t of the trachea to the right, unchanged.No new cardiopulmonary finding detected. IMPRESSION: Stable chest since comparative study.
[2020-01-19] MEDS: HYDROCODONE/APAP 10/325 TAB PO PRN ×3 (14:17→22:21)
[2020-01-19 15:21] LABS: Urine Appearance CLEAR; Urine Bilirubin NEGATIVE (NEG); Urine Blood NEGATIVE (NEG); Urine Color YELLOW; Urine Glucose NEGATIVE (NEG); Urine Protein TRACE (NEG); Urine Specific Gravity <=1.005 (1.005-1.030)
[2020-01-19 15:24] LABS: Urine Microscopic Reflex NO UMIC
[2020-01-19] MEDS ORDERED: levoFLOXacin 750 MG TAB PO SCH (17:00)
--- NOTE | 2020-01-19 19:13 | PN ---
Date of Progress Note: 01/19/2020 Subjective: The patient was admitted with hyponatremia. The patient's workup shows SIADH/beer potom benito. The patient upon admission sodium was below 120. The patient was started on salt tablet and L asix. Sodium has trended up, currently around 128, 129 plateaued for the last 48 hours. The patient on fluid restriction. Physical Examination: Vital Signs: When I saw the patient, blood pressure of 140/90, pulse of 76, afebrile. Chest: Clear to auscultation. Heart: S1, S2. Regular. Abdomen: Morbidly obese. Could not appreciate any organomegaly. Extremities: No edema. Neurologic: Alert. No focality. Laboratory Data: WBC 11.7, H and H 9/25.9, platelets 150. Sodium 129, potassium 4.2, bicarb 31, BUN 16, creatinine down to 1.3, GFR of 53, calcium 8.3, phosphorus 2.7, magnesium 1.9, albumin 2.6, ren ected calcium is 9.5. Current Medications: The patient on salt tablet 1 g b.i.d., Lasix 20 mg daily, Flomax, Levaquin 750, Ambien 5 mg, breathing treatment, levothyroxine, allopurinol 300 daily. Assessment And Plan: 1.Acute kidney injury secondary to prerenal, recovering. It looked to me normal volume. I am going to continue to monitor. Continue Lasix for the syndrome of inappropriate antidiuretic hormone secre tion. 2.Hypertension, controlled, optimal. Continue current medication. We will avoid any hydrochlorothi azide as a diuretic to avoid worsening his hyponatremia. 3.Hyponatremia secondary to syndrome of inappropriate antidiuretic hormone secretion/beer potomania. Currently sodium had plateaued to 128 to 129. I am going to go ahead and increase salt tablet to 1 g t.i.d. continue Lasix 20 mg. we will follow up the patient. The patient cleared from the renal standpoint for discharge planning. We will follow up chemistry in 1 to 2 weeks upon discharge. 4.Pneumonia as by primary. PIOTR/ZINAL Voice ID: [id number] Report ID: [id number]
[2020-01-19] MEDS: ZOLPIDEM TARTRATE 5 MG TABLET PO SCH (21:19)
[2020-01-20] MEDS: HEPARIN 5000 UNIT/ML 1 ML VIAL SQ SCH ×2 (00:31→08:39)
[2020-01-20] MEDS: MORPHINE 2 MG/ML SYR IV PRN ×2 (02:11→09:49)
[2020-01-20 04:37] LABS: Absolute Lymphocytes (CBC) 0.6 K/uL (0.7-4.9); Basophils % 0.8 % (0-1.3); Hematocrit 26.8 % (39.6-49.0); Lymphocytes % 5.7 % (15.3-44.8); MPV 8.1 fL (7.6-11.3); RBC Red Blood Cell Count 2.53 M/uL (4.33-5.43)
[2020-01-20 04:43] LABS: Albumin 2.6 g/dL (3.4-5.0); Magnesium 1.8 mg/dL (1.8-2.4); Phosphorus 2.5 mg/dL (2.5-4.9); Potassium 4.3 mmol/L (3.5-5.1)
[2020-01-20] MEDS: HYDROCODONE/APAP 10/325 TAB PO PRN (05:47)
[2020-01-20] MEDS: LEVOTHYROXINE SOD 0.075 MG TAB PO SCH (05:47)
[2020-01-20] MEDS: LEVOTHYROXINE SOD 0.1 MG TAB PO SCH (05:47)
[2020-01-20] MEDS: INSULIN -REGULAR HUMAN 50 UNIT/0.5 ML ML SQ SCH ×2 (07:30→11:30)
[2020-01-20] MEDS: allopurinoL 300 MG TAB PO SCH (08:35)
[2020-01-20] MEDS: MULTIVITAMIN TAB PO SCH (08:35)
[2020-01-20] MEDS: SODIUM CHLORIDE 1 GM TAB PO SCH ×2 (08:35→14:05)
[2020-01-20] MEDS: THIAMINE HCL 100 MG TABLET PO SCH (08:35)
[2020-01-20] MEDS: FUROSEMIDE 20 MG TABLET PO SCH (08:35)
[2020-01-20] MEDS: ATORVASTATIN 20 MG TAB PO SCH (08:36)
[2020-01-20] MEDS: TAMSULOSIN 0.4 MG SR CAP PO SCH (08:36)
[2020-01-20] MEDS ORDERED: MAGNESIUM SULFATE 1 gm IVPB 1 GM/100 ML BAG IV ONE ×2 (09:00→11:00)
[2020-01-20 09:49] VITALS: O2SAT 95
--- NOTE | 2020-01-20 11:31 | PN ---
Date of Progress Note: 01/20/2020 Subjective: The patient was admitted with fall, had acute kidney injury secondary to prerenal, has h yponatremia secondary to depletion secondary to SIADH/Beer potomania. The patient was started on jayy t tablet with Lasix. Sodium has been corrected. Physical Examination: Vital Signs: When I saw the patient, blood pressure 127/66, pulse of 88. The patient had urine outp ut of 2200. Chest: Clear to auscultation. Heart: S1, S2. Regular. Abdomen: Soft, nontender. Extremities: No edema. Laboratory Data: WBC 11.3, H and H 9.2/26.8, platelet 160. Sodium 131, potassium 4.3, bicarb 31, BU N 16, creatinine 1.4, uric acid of 4, calcium 8.8, phosphorus 2.5, magnesium 1.8, albumin 2.6, correc edmundo calcium 9.8. Current Medications: The patient on include; 1.Flomax. 2.Atorvastatin. 3.Lasix 20 daily. 4.Levothyroxine. 5.Allopurinol. 6.Salt tablet 1 tablet t.i.d. 7.Multivitamin. Assessment And Plan: 1.Acute kidney injury secondary to prerenal, recovered, back to base line. 2.Hyponatremia secondary to syndrome of inappropriate antidiuretic hormone secretion and Beer potoma melanie, responds to current dose of salt tablet and Lasix. Continue current treatment. 3.Hypomagnesemia. We will supplement. 4.Hyperkalemia, resolved. 5.Deconditioning. Continue PT/OT. PIOTR/ROBERT Voice ID: [id number] Report ID: [id number]
--- NOTE | 2020-01-20 12:20 | P.DS ---
Admission Date: 01/14/20 Discharge Date: 01/20/20 Disposition: TRANSFER TO [facility] Discharge Condition: GOOD Reason for Admission: Hyponatremia (113) Consultations: Nephrology - Dr. Bradley Procedures: CT abdomen (01/12): 1. Moderate stool throughout the large bowel. No obstruction. 2. Age-indeterminate fracture at the T12-L1 level extending through the disc space, the anterior osteophytes and along the superior aspect of the L1 vertebral body. 3. Abdominal aortic aneurysm measuring 5.8 cm in maximum diameter. Aortobiiliac endograft in place. If prior studies exist, direct comparison would be of considerable value. Recommend referral to a vascular specialist CT lumbar spine (01/13): Acute fracture involving the superior endplate of L1 with extension in the intervertebral disc space at T12-L1. Renal ultrasound (01/15): Two left renal cysts, largest measuring 2.6 cm. No hydronephrosis CXR (01/16): Right upper lobe is mildly hszy which may indicate mild pneumonia CXR (01/18): No significant change seen in the mild interstitial prominence in the right apex Problem List Metabolic encephalopathy secondary to severe hyponatremia secondary to SIADH and beer potomania Generalized debility complicated by acute fracture T12/L1 Acute kidney injury secondary to prerenal, recovered, back to baseline Hypertension Hypothyroidism Type 2 diabetes mellitus Brief History of Present Illness: 74yo M, PMH: alcoholism, HTN, hypothyroidism who presented to ED via EMS with complaints of fall resulting in back pain. EMS states patient was trying to go to bed when he fell. Could not get up. Called EMS for assistance to get up. Patient has a long record of falling likely secondary to alcoholism. Patient denies injury or loss of consciousness or head injury. In the ED patient was AAOx3, pleasant, cooperative, in no distress. EtOH level: 136, WBC: 14.2, Hgb: 10.5, Sodium: 113 with Cl: 77. He was admitted for further management of hyponatremia and back pain. Hospital Course: Patient was admitted for further management, nephrology was consulted. His hyponatremia resolved with fluid restriction, salt tabs, and Lasix. Given his history of alcohol abuse he was monitored for alcohol withdrawal. His hospitalization was complicated by acute delirium 1 night remotely acute shortness of breath secondary to pneumonia on chest x-ray seen on 01/16. He was treated with Levaquin, and discharged to complete 7 more days. Patient was also requiring pain medication due to the acute fracture. PT was consulted due to the patient's debility and patient was ultimately discharged to SNF. On day of discharge, patient was breathing more comfortably on 1 L nasal cannula with some mild expiratory wheeze. He reports no diagnosis of COPD, but remote history of smoking. If patient continues to have wheeze and shortness of breath, to consider prednisone. Vital Signs/Physical Exam: Temp Pulse Resp BP Pulse Ox 97.2 F 88 18 127/66 90 L 01/20/20 08:00 01/20/20 08:35 01/20/20 09:49 01/20/20 08:35 01/20/20 09:49 General: Alert, In no apparent distress, Oriented x3 HEENT: Mucous membr. moist/pink Neck: JVD not distended Respiratory: Diminished, Expiratory wheezes (mild) Cardiovascular: No edema, Regular rate/rhythm, Normal S1 S2 Gastrointestinal: Soft and benign, Non-distended, No tenderness Integumentary: No rashes Neurological: Normal speech, Normal affect Laboratory Data at Discharge: WBC 11.3 K/uL (4.3-10.9) H 01/20/20 04:11 Hgb 9.2 g/dL (13.6-17.9) L 01/20/20 04:11 Hct 26.8 % (39.6-49.0) L 01/20/20 04:11 Plt Count 160 K/uL (152-406) 01/20/20 04:11 PT 10.7 SECONDS (9.5-12.5) 01/15/20 06:15 INR 0.91 01/15/20 06:15 APTT 24.8 SECONDS (24.3-36.9) 01/15/20 06:15 Sodium 131 mmol/L (136-145) L 01/20/20 04:11 Potassium 4.3 mmol/L (3.5-5.1) 01/20/20 04:11 BUN 16 mg/dL (7-18) 01/20/20 04:11 Creatinine 1.49 mg/dL (0.55-1.3) H 01/20/20 04:11 Glucose 116 mg/dL (74-106) H 01/20/20 04:11 Uric Acid 4.0 mg/dL (3.5-7.2) 01/20/20 04:11 Phosphorus 2.5 mg/dL (2.5-4.9) 01/20/20 04:11 Magnesium 1.8 mg/dL (1.8-2.4) 01/20/20 04:11 Total Bilirubin 0.6 mg/dL (0.2-1.0) 01/14/20 01:15 AST 61 U/L (15-37) H 01/14/20 01:15 ALT 36 U/L (12-78) 01/14/20 01:15 Alkaline Phosphatase 128 U/L (45-117) H 01/14/20 01:15 Lipase 30 U/L (73-393) L 01/14/20 01:15 Home Medications: Tamsulosin HCl [Flomax] 0.4 mg PO BID 08/25/13 Allopurinol 300 mg PO DAILY 01/14/20 Atorvastatin Calcium [Lipitor*] 20 mg PO DAILY 01/14/20 Levothyroxine Sodium [Synthroid] 175 mcg PO DAILY 01/14/20 Metformin HCl 1,000 mg PO BID 01/14/20 Pioglitazone HCl 15 mg PO DAILY 01/14/20 Zolpidem Tartrate [Ambien*] 10 mg PO BEDTIME 01/14/20 Codeine/APAP [Tylenol W/Codeine #3 tab] 1 tab PO Q6HP PRN 3 Days #12 tab 01/20/20 Furosemide [Lasix*] 20 mg PO DAILY 30 Days #30 tab 01/20/20 Sodium Chloride Tab [Sodium Chloride*] 1 gm PO TID 14 Days #42 tab 01/20/20 Thiamine HCl 100 mg PO DAILY 30 Days #30 tablet 01/20/20 levoFLOXacin [Levaquin*] 750 mg PO 1700 7 Days #14 tab 01/20/20 New Medications: Codeine/APAP [Tylenol W/Codeine #3 tab] 1 tab PO Q6HP PRN 3 Days #12 tab PRN Reason: Pain Furosemide [Lasix*] 20 mg PO DAILY 30 Days #30 tab levoFLOXacin [Levaquin*] 750 mg PO 1700 7 Days #14 tab Sodium Chloride Tab [Sodium Chloride*] 1 gm PO TID 14 Days #42 tab Thiamine HCl 100 mg PO DAILY 30 Days #30 tablet Patient Discharge Instructions: Follow up with PCP within 1 week of discharge from SNF. Follow up with Nephrology in 2-3 weeks. Diet: ADA Activity: Ad katie Time spent managing pt's care (in minutes): 35
[2020-01-20 12:30] VITALS: BP 142/65; TEMP 97.1
== END 2020-01-20 14:20 | DRG 643 ==
LOC: ER 23:15 → ERHOLD 01-14 02:57 → 4TH 01-14 03:33 → OBSVTOIN 01-14 11:15 → 2ND 01-17 15:16
PROVIDERS: ADMIT Internal Medicine; ATTEND Hospitalist
DX: E22.2 Syndrome of inappropriate secretion of antidiuretic hormone (principal); G93.41 Metabolic encephalopathy; J18.9 Pneumonia, unspecified organism; S32.019A Unspecified fracture of first lumbar vertebra, initial encounter for closed fracture; S22.080A Wedge compression fracture of T11-T12 vertebra, initial encounter for closed fracture; N17.9 Acute kidney failure, unspecified; I10 Essential (primary) hypertension; D63.8 Anemia in other chronic diseases classified elsewhere; W18.30XA Fall on same level, unspecified, initial encounter; Z79.890 Hormone replacement therapy; Z79.899 Other long term (current) drug therapy; E03.9 Hypothyroidism, unspecified; R53.81 Other malaise; F10.20 Alcohol dependence, uncomplicated; R41.0 Disorientation, unspecified; E78.5 Hyperlipidemia, unspecified; E11.40 Type 2 diabetes mellitus with diabetic neuropathy, unspecified; E87.5 Hyperkalemia; I71.9 Aortic aneurysm of unspecified site, without rupture; E66.9 Obesity, unspecified; Z68.33 Body mass index [BMI] 33.0-33.9, adult; R06.03 Acute respiratory distress; D72.829 Elevated white blood cell count, unspecified; Z87.891 Personal history of nicotine dependence; E83.42 Hypomagnesemia; Z20.828 Contact with and (suspected) exposure to other viral communicable diseases
CPT/HCPCS: 36415; 71045; 72131; 74176; 76377; 76770; 80048; 80069; 80076; 80320; 81001; 81003; 81015; 82533; 82570; 82947; 83690; 83735; 83880; 83930; 83935; 84132; 84156; 84300; 84439; 84443; 84550; 85025; 85610; 85730; 87086; 87088; 94640; 96372; 96374; 97112; 97116; 97161; 97530; 99285; G0378; J1644; J2270; J3475; J7030; U0002

== ENCOUNTER 2024-11-24 14:21 | Inpatient (IN) | payer OTHER ==
[2024-11-24] MEDS ORDERED: AMOX/K CLAV 875 MG TAB ONE (14:52)
[2024-11-24] MEDS ORDERED: HYDROCODONE/APAP 5/325 MG TAB ONE (15:05)
[2024-11-24 15:15] LABS: Absolute Lymphocytes (CBC) 0.8 K/uL (0.7-4.9); Hematocrit 30.6 % (39.6-49.0); Hemoglobin 10.8 g/dL (13.6-17.9); MCH 34.5 pg (27.0-35.0); MCHC 35.3 g/dL (32.0-36.0); MCV 97.7 fL (80-100); MPV 8.0 fL (7.6-11.3); Nucleated RBC Absolute Count 0.0 (0-0); Nucleated Red Blood Cells % 0.1 % (0-0); RBC Red Blood Cell Count 3.13 M/uL (4.33-5.43); White Blood Count 7.10 thou/uL (4.3-10.9)
--- NOTE | 2024-11-24 15:25 | RAD REPORT ---
EXAMINATION: ONE VIEW CHEST XR CLINICAL INDICATION: CHEST PAIN TECHNIQUE: Frontal chest projection is submitted. Examination is limited by patient positioning and t echnique. COMPARISON: 01/19/2020 FINDINGS: The lungs are diffusely emphysematous but grossly clear. The heart is upper limit of normal in size. No displaced fractures identified. IMPRESSION: COPD without an acute process suspected.
[2024-11-24 15:28] LABS: Anion Gap 7.9 mEq/L (5.0-15.0); BUN Blood Urea Nitrogen 20.0 mg/dL (7-18); Glucose Level 188.0 mg/dL (74-106); NT PRO-BNP 3384.0 pg/mL (<450); Potassium 3.9 mEq/L (3.5-5.1); Troponin High Sensitivity 21.1 pg/mL (<58.9)
[2024-11-24] MEDS ORDERED: FUROSEMIDE 40 MG/4 ML VIAL ONE (16:03)
--- NOTE | 2024-11-24 17:28 | EDPHYS ---
Physician Documentation [facility] Name: Omar Hogan Age: 78 yrs Sex: Male : 1945 Arrival Date: 11/24/2024 Time: 14:21 Bed 7 Private MD: ED Physician Judy Chung HPI: 11/24 15:21 This 78 yrs old Male presents to ER via Wheelchair with complaints of High dr5 Blood Pressure. 15:21 Onset: The symptoms/episode began/occurred acutely. Patient is a 78-year-old male with dr5 history of hypertension and hypothyroidism coming in for evaluation of high blood pressure. Patient reports that he went to the dentist to have tooth removed and they would not remove it due to elevated blood pressure. patient then went to Dr. Moore's office and unable to have blood pressure medications refilled as he has not been seen there in over a year. Patient sent to ER for evaluation of shortness of breath and mouth pain while in their office. Patient reports that he is an every other day drinker and had 10 beers yesterday. Patient denies any pain at this time. Patient also reports decreased appetite and has not eaten anything today.. Historical: - Allergies: 14:37 No Known Allergies; dd2 - PMHx: 14:37 Hypertension; Thyroid problem; dd2 - PSHx: 14:38 Unable to Obtain; dd2 - Immunization history:: Adult Immunizations unknown. - Infectious Disease History:: Denies. - Social history:: Smoking status: Patient/guardian denies using tobacco, but has a distant history of tobacco abuse. ROS: 15:21 Constitutional: as per hpi dr5 Exam: 15:21 Constitutional: This is a well developed, well nourished patient who is awake, alert, dr5 and in no acute distress. Head/Face: Normocephalic, atraumatic. Eyes: Pupils equal round and reactive to light, extra-ocular motions intact. Lids and lashes normal. Conjunctiva and sclera are non-icteric and not injected. Cornea within normal limits. Periorbital areas with no swelling, redness, or edema. Neck: Trachea midline, no thyromegaly or masses palpated, and no cervical lymphadenopathy. Supple, full range of motion without nuchal rigidity, or vertebral point tenderness. No Meningismus. Chest/axilla: Normal chest wall appearance and motion. Nontender with no deformity. No lesions are appreciated. Cardiovascular: Regular rate and rhythm with a normal S1 and S2. Normal PMI, no JVD. No pulse deficits. Respiratory: Lungs have equal breath sounds bilaterally, clear to auscultation. No rales, rhonchi or wheezes noted. No increased work of breathing, no retractions or nasal flaring. Back: No spinal tenderness. No costovertebral tenderness. Full range of motion. Skin: Warm, dry with normal turgor. Normal color with no rashes, no lesions, and no evidence of cellulitis. MS/ Extremity: Pulses equal, no cyanosis. Neurovascular intact. Full, normal range of motion. Neuro: Awake and alert, GCS 15, oriented to person, place, time, and situation. Cranial nerves II-XII grossly intact. Motor strength 5/5 in all extremities. Sensory grossly intact. Cerebellar exam normal. Normal gait. Vital Signs: 14:34 BP 148 / 85; Pulse 75; Resp 16; Temp 98.2; Pulse Ox 97% on R/A; Pain 3/10; dd2 16:01 BP 182 / 95; Pulse 77; Resp 15; Pulse Ox 99% ; hb 17:00 BP 168 / 68; Pulse 85; Resp 17; Pulse Ox 99% on R/A; hb 17:26 BP 149 / 56; Pulse 64; Resp 14; Pulse Ox 96% ; hb 18:44 BP 150 / 60; Pulse 65; Resp 16; Pulse Ox 97% on R/A; hb 19:44 BP 157 / 88; Pulse 64; Resp 19; Pulse Ox 97% ; jj7 14:34 Pain Scale: Adult dd2 MDM: 14:30 Medical Screening Exam initiated dr5 17:50 Differential diagnosis: hypertensive crisis, Malignant HTN, HTN, Pneumonia, COPD, dr5 NSTEMI, STEMI. Data reviewed: vital signs, nurses notes, lab test result(s), cardiac enzymes, troponin i, CBC, white blood cell count, hemoglobin, hematocrit, platelets, electrolytes, sodium, potassium, chloride, serum bicarbonate, BUN, creatinine, serum glucose, EKG, radiologic studies, plain films. Consideration of Admission/Observation Patient was admitted/placed on observation. Management of patient was discussed with the following: Hospitalist: Dr. Iqbal. I considered the following discharge prescriptions or medication management in the emergency department I discussed and recommended Over The Counter medications, Medications were administered in the Emergency Department. See MAR. Care significantly affected by the following chronic conditions: Hypertension, Thyroid Disorder, HTN. Care significantly affected by the following Social Determinants of Health: Poor access to healthcare and/or lack of insurance, Poor access to transportation, Misuse of alcohol and/or drugs, Problems related to employment. Scoring Tools HEART Score: History: ECG: Age: Risk Factors: Troponin: Total Score = 5. Counseling: I had a detailed discussion with the patient and/or guardian regarding the historical points, exam findings, and any diagnostic results supporting the discharge/admit diagnosis, the presence of at least one elevated blood pressure reading (>120/80) during this emergency department visit, lab results, radiology results, the need for further work-up and treatment in the hospital, smoking cessation. Special discussion: I have referred the patient to see his PCP for further evaluation of high blood pressure. ED course: Will admit patient for shortness of breath workup. Patient is agreeable to plan.. 11/24 14:43 Order name: Basic Metabolic Panel; Complete Time: 15:11/24 14:43 Order name: CBC with Diff; Complete Time: 16:05 11/24 14:43 Order name: NT PRO-BNP; Complete Time: :11/24 14:43 Order name: Troponin HS; Complete Time: 11/24 19:17 Order name: Basic Metabolic Panel EDMS 11/24 19:17 Order name: Basic Metabolic Panel EDMS 11/24 19:17 Order name: Basic Metabolic Panel EDMS 11/24 19:17 Order name: Basic Metabolic Panel EDMS 11/24 19:17 Order name: Basic Metabolic Panel EDMS 11/24 19:17 Order name: Basic Metabolic Panel EDMS 11/24 19:17 Order name: CBC with Automated Diff EDMS 11/24 19:17 Order name: CBC with Automated Diff EDMS 11/24 19:17 Order name: CBC with Automated Diff EDMS 11/24 19:17 Order name: CBC with Automated Diff EDMS 11/24 19:17 Order name: CBC with Automated Diff EDMS 11/24 19:17 Order name: CBC with Automated Diff EDMS 11/24 19:17 Order name: Magnesium EDMS 11/24 19:17 Order name: Magnesium EDMS 11/24 19:17 Order name: Magnesium EDMS 11/24 19:17 Order name: Magnesium EDMS 11/24 19:17 Order name: Magnesium EDMS 11/24 19:17 Order name: Magnesium EDMS 11/24 19:17 Order name: Phosphorus EDMS 11/24 19:17 Order name: Phosphorus EDMS 11/24 19:17 Order name: Phosphorus EDMS 11/24 19:17 Order name: Phosphorus EDMS 11/24 19:17 Order name: Phosphorus EDMS 11/24 19:17 Order name: Phosphorus EDMS 11/24 19:17 Order name: Troponin High Sensitivity EDMS 11/24 19:17 Order name: Troponin High Sensitivity EDMS 11/24 19:17 Order name: Troponin High Sensitivity EDMS 11/24 19:31 Order name: T4 Free EDMS 11/24 19:31 Order name: T4 Free EDMS 11/24 19:31 Order name: Thyroid Stimulating Hormone EDMS 11/24 19:31 Order name: Thyroid Stimulating Hormone EDMS 11/24 19:57 Order name: Lipid Profile EDMS 11/24 19:57 Order name: Lipid Profile EDMS 11/24 14:43 Order name: XRAY Chest (1 view); Complete Time: 15:26 11/24 14:43 Order name: EKG; Complete Time: 14:43 11/24 19:17 Order name: EKG Electrocardiogram EDMS 11/24 19:17 Order name: EKG Electrocardiogram EDMS 11/24 14:43 Order name: Cardiac monitoring; Complete Time: 14:58 11/24 14:43 Order name: EKG - Nurse/Tech; Complete Time: 15:44 11/24 14:43 Order name: IV Saline Lock; Complete Time: 15:04 11/24 14:43 Order name: Labs collected and sent; Complete Time: 15:04 11/24 14:43 Order name: O2 Per Protocol; Complete Time: 14:58 11/24 14:43 Order name: O2 Sat Monitoring; Complete Time: 14:58 dr5 EC:42 Rate is 74 beats/min. Rhythm is regular. QRS [place] is Normal. QRS interval is normal at dr5 98 msec. QT interval is normal at 432 msec. Clinical impression: Atrial Flutter. Administered Medications: 15:08 Drug: Amoxicillin PO 875 mg PO once Route: PO; hb 16:11 Follow up: Response: No adverse reaction hb 15:08 Drug: HYDROcodone-acetaminophen PO 5 mg-325 mg 2 tabs PO once Route: PO; hb 16:11 Follow up: Response: No adverse reaction hb 16:10 Drug: Furosemide IVP 40 mg IVP once; give over 2 minutes Route: IVP; Site: right hb antecubital; 20:23 Follow up: Response: Marked relief of symptoms jj7 16:46 Drug: Lisinopril PO 5 mg PO once Route: PO; hb 20:22 Follow up: Response: Marked relief of symptoms jj7 Disposition Summary: 11/24/24 17:28 Hospitalization Ordered Notes: Hospitalization Status: Inpatient Admission dr5 Provider: Angelo Iqbal Location: Telemetry/MedSurg (Inpatient) dr5 Condition: Stable dr5 Problem: new dr5 Symptoms: have worsened dr5 Bed/Room Type: Standard dr5 Room Assignment: 425(11/24/24 19:27) Diagnosis - Shortness of breath dr5 - Unspecified atrial flutter dr5 - COPD/ Chronic obstructive pulmonary disease, unspecified dr5 Discharge Instructions: - Discharge Summary Sheet dr5 - Hypertension, Adult dr5 Forms: - Medication Reconciliation Form dr5 - SBAR form dr5 - Leadership Thank You Letter dr5 Prescriptions: - Augmentin 875-125 mg Oral Tablet - take 1 tablet ORAL route every 12 hours for 10 days; 20 tablet; Refills: 0, dr5 Product Selection Permitted - Lasix 40 mg Oral Tablet - take 1 tablet ORAL route once daily for 30 days; 30 tablet; Refills: 0, Product dr5 Selection Permitted - Lisinopril 5 mg Oral Tablet - take 1 tablet ORAL route once daily; 20 tablet; Refills: 0, Product Selection dr5 Permitted - Zithromax Z-[place] 250 mg Oral Tablet - take 1 tablet ORAL route as directed for 5 days Day 1 - take two (2) tablets dr5 one time. Day 2, 3, 4 , 5 take one (1) tablet once daily.; 6 tablet; Refills: 0, Product Selection Permitted Signatures: Dispatcher [employer] Padmini Cortez RN RN kl Baxter, Heather, RN RN hb DAVIS, DIANA, RN RN dd2 Nolberto Reilly FNP-C SWIMMING POOL SERVICEPERSON-5 Earnestine Odell RN jj7 Corrections: (The following items were deleted from the chart) 14:38 14:37 PSHx: None; dd2 dd2 19:27 17:28 dr5 kl
--- NOTE | 2024-11-24 17:28 | ER ---
Nurse's Notes [facility] Name: Omar Hogan Age: 78 yrs Sex: Male : 1945 Arrival Date: 11/24/2024 Time: 14:21 Bed 7 Private MD: Diagnosis: Shortness of breath;Unspecified atrial flutter;COPD/ Chronic obstructive pulmonary disease, unspecified Presentation: 11/24 14:34 Chief complaint: Patient states: HE WENT TO THE DR'S OFFICE TO GET PAIN MEDICINE AND dd2 BLOOD PRESSURE MEDICINE SO THE DENTIST WILL PULL A TOOTH. DR CALLED AND STATED PT'S BP WAS ELEVATED AND PT WAS WEAK AND DIZZY AND WHEELED TO ER. Coronavirus screen: At this time, the client does not indicate any symptoms associated with coronavirus-19. Ebola Screen: No symptoms or risks identified at this time. Initial Sepsis Screen: Does the patient meet any 2 criteria? No. Patient's initial sepsis screen is negative. Does the patient have a suspected source of infection? No. Patient's initial sepsis screen is negative. Risk Assessment: Do you want to hurt yourself or someone else? Patient reports no desire to harm self or others. Onset of symptoms was November 24, 2024. 14:34 Method Of Arrival: Wheelchair dd2 14:34 Acuity: LINDA 3 dd2 Triage Assessment: 14:38 General: Appears in no apparent distress. uncomfortable, Behavior is calm, cooperative, dd2 appropriate for age. Pain: Complains of pain in UPPER TEETH. EENT: Poor dentition noted. Historical: - Allergies: 14:37 No Known Allergies; dd2 - PMHx: 14:37 Hypertension; Thyroid problem; dd2 - PSHx: 14:38 Unable to Obtain; dd2 - Immunization history:: Adult Immunizations unknown. - Infectious Disease History:: Denies. - Social history:: Smoking status: Patient/guardian denies using tobacco, but has a distant history of tobacco abuse. Screenin:00 [facility] ED Fall Risk Assessment (Adult) History of falling in the last 3 months, hb including since admission No falls in past 3 months (0 pts) Confusion or Disorientation No (0 pts) Intoxicated or Sedated No (0 pts) Impaired Gait No (0 pts) Mobility Assist Device Used No (0 pt) Altered Elimination No (0 pt) Score/Fall Risk Level 0 - 2 = Low Risk Oriented to surroundings, Maintained a safe environment, Educated pt \T\ family on fall prevention, incl call for assistance when getting out of bed. Abuse screen: Denies threats or abuse. Denies injuries from another. Nutritional screening: No deficits noted. Tuberculosis screening: No symptoms or risk factors identified. Assessment: 15:00 General: Appears in no apparent distress. Behavior is calm, cooperative. Pain: Pain hb currently is 7 out of 10 on a pain scale. Neuro: Level of Consciousness is awake, alert, obeys commands, Oriented to person, place, time, situation. Cardiovascular: Patient's skin is warm and dry. Respiratory: Respiratory effort is even, unlabored, Respiratory pattern is regular, symmetrical. GI: No signs and/or symptoms were reported involving the gastrointestinal system. : No signs and/or symptoms were reported regarding the genitourinary system. EENT: No signs and/or symptoms were reported regarding the EENT system. Derm: Skin is pink, warm \T\ dry. Musculoskeletal: No signs and/or symptoms reported regarding the musculoskeletal system. 16:00 Reassessment: Patient appears in no apparent distress at this time. No changes from hb previously documented assessment. Patient and/or family updated on plan of care and expected duration. Pain level reassessed. 17:00 Reassessment: Patient appears in no apparent distress at this time. No changes from hb previously documented assessment. Patient and/or family updated on plan of care and expected duration. Pain level reassessed. 18:43 Reassessment: Patient appears in no apparent distress at this time. No changes from hb previously documented assessment. Patient and/or family updated on plan of care and expected duration. Pain level reassessed. 19:20 Reassessment: ASSUMED CARE OF PT. PT SITTING IN BED. NO PAIN OR DISTRESS OR NOTED. VS jj7 STABLE. CALL [place] IN REACH. INFORMED PT THAT HE WILL BE ADMITTED AND GOING TO ROOM 425. NO ADDITIONAL NEEDS. CALL BEL IN REACH. Vital Signs: 14:34 BP 148 / 85; Pulse 75; Resp 16; Temp 98.2; Pulse Ox 97% on R/A; Pain 3/10; dd2 16:01 BP 182 / 95; Pulse 77; Resp 15; Pulse Ox 99% ; hb 17:00 BP 168 / 68; Pulse 85; Resp 17; Pulse Ox 99% on R/A; hb 17:26 BP 149 / 56; Pulse 64; Resp 14; Pulse Ox 96% ; hb 18:44 BP 150 / 60; Pulse 65; Resp 16; Pulse Ox 97% on R/A; hb 19:44 BP 157 / 88; Pulse 64; Resp 19; Pulse Ox 97% ; jj7 14:34 Pain Scale: Adult dd2 ED Course: 14:26 Patient arrived in ED. cj3 14:30 Nolberto Reilly FNP-C is PHCP. dr5 14:30 Judy Chung MD is Attending Physician. dr5 14:37 Triage completed. dd2 14:38 Arm band placed on left wrist. dd2 14:45 Chad Gutiérrez, DAVID is Primary Nurse. bp 15:00 Patient has correct armband on for positive identification. Call light in reach. hb Provided Education on: .. 15:00 Inserted saline lock: 20 gauge in right antecubital area, using aseptic technique. hb Blood collected. Flushed with 10 mL NS. 15:19 XRAY Chest (1 view) In Process Unspecified. EDMS 17:27 Angelo Iqbal is Hospitalizing Provider. dr5 20:13 No provider procedures requiring assistance completed. jj7 20:19 Patient transferred, IV remains in place. jj7 Administered Medications: 15:08 Drug: Amoxicillin PO 875 mg PO once Route: PO; hb 16:11 Follow up: Response: No adverse reaction hb 15:08 Drug: HYDROcodone-acetaminophen PO 5 mg-325 mg 2 tabs PO once Route: PO; hb 16:11 Follow up: Response: No adverse reaction hb 16:10 Drug: Furosemide IVP 40 mg IVP once; give over 2 minutes Route: IVP; Site: right hb antecubital; 20:23 Follow up: Response: Marked relief of symptoms jj7 16:46 Drug: Lisinopril PO 5 mg PO once Route: PO; hb 20:22 Follow up: Response: Marked relief of symptoms jj7 Medication: 15:00 VIS not applicable for this client. hb Outcome: 17:28 Decision to Hospitalize by Provider. dr5 19:40 Admitted to Med/surg accompanied by tech, room 425, Report called to SBAR FAXED TO [facility] FLOOR 19:40 Condition: improved 20:22 Patient left the ED. jj7 Signatures: Dispatcher [employer] EDMS Rebecca Donovan RN RN Chad Jay RN RN bp Earnestine Odell RN RN jj7 JJ CORONEL RN RN dd2 Nolberto Reilly, PRESS SET UP PERSON-C PRESS SET UP PERSON-Cdr5 Rosie Odell cj3 Corrections: (The following items were deleted from the chart) 14:38 14:37 PSHx: None; dd2 dd2 17:26 17:22 BP 168 / 68; Pulse 85bpm; Resp 17bpm; Pulse Ox 99% RA; hb hb
[2024-11-24] MEDS ORDERED: ACETAMINOPHEN 325 MG TABLET PO PRN (19:11)
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
[2024-11-24] MEDS ORDERED: HYDRALAZINE HCL 20 MG/ML VIAL IV PRN (19:54)
[2024-11-24 20:38] VITALS: BMI 23.3
[2024-11-25 01:05] VITALS: O2SAT 97
[2024-11-25] MEDS: AMOX/K CLAV 875 MG TAB PO SCH (01:11)
[2024-11-25] MEDS: ATORVASTATIN 40 MG TAB PO SCH (01:12)
[2024-11-25] MEDS: HEPARIN 5000 UNIT/ML 1 ML VIAL SQ SCH (01:13)
[2024-11-25] MEDS: FUROSEMIDE 40 MG/4 ML VIAL IV SCH (01:13)
[2024-11-25 07:19] LABS: Absolute Lymphocytes (CBC) 1.5 K/uL (0.7-4.9); Hematocrit 30.3 % (39.6-49.0); Hemoglobin 10.8 g/dL (13.6-17.9); MCH 34.7 pg (27.0-35.0); MCHC 35.5 g/dL (32.0-36.0); MCV 97.7 fL (80-100); MPV 8.6 fL (7.6-11.3); Nucleated RBC Absolute Count 0.0 (0-0); Nucleated Red Blood Cells % 0.1 % (0-0); RBC Red Blood Cell Count 3.10 M/uL (4.33-5.43); White Blood Count 9.30 thou/uL (4.3-10.9)
[2024-11-25 07:44] LABS: Anion Gap 8.1 mEq/L (5.0-15.0); BUN Blood Urea Nitrogen 23.0 mg/dL (7-18); Glucose Level 128.0 mg/dL (74-106); HDL Cholesterol 58.0 mg/dL (40-60); LDL Cholesterol, Calculated 34.0 mg/dL (<130); LDL Cholesterol,Calc NonReport 34.0; Potassium 4.1 mEq/L (3.5-5.1)
[2024-11-25 07:45] LABS: Magnesium 2.2 mg/dL (1.6-2.4)
[2024-11-25 07:47] LABS: Thyroid Stimulating Hormone 11.3 uIU/mL (0.358-3.740)
[2024-11-25 08:52] LABS: Anisocytosis 1+; Blood Morphology Comment NOTED (NOT SEEN); Microcytosis 1+; Ovalocytes SLIGHT; White Blood Cell Scan OK (OK)
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
[2024-11-25] MEDS: ASPIRIN EC 81 MG TAB PO SCH (09:49)
[2024-11-25] MEDS: METOPROLOL TAR 25 MG TAB PO SCH (09:53)
[2024-11-25] MEDS: APIXABAN 5 MG TABLET PO SCH (09:53)
[2024-11-25] MEDS: HYDROCODONE/APAP 7.5/325 MG TAB PO PRN (11:59)
[2024-11-25 16:47] VITALS: BP 150/86; TEMP 97.6
== END 2024-11-25 17:38 | disposition home or self-care (01) | DRG 310 ==
LOC: ER 14:21 → ERHOLD 19:11 → 4TH 20:11
PROVIDERS: ADMIT Internal Medicine; ATTEND Internal Medicine
DX: I48.92 Unspecified atrial flutter (principal); I10 Essential (primary) hypertension; E03.9 Hypothyroidism, unspecified; J44.9 Chronic obstructive pulmonary disease, unspecified; E78.5 Hyperlipidemia, unspecified; N40.0 Benign prostatic hyperplasia without lower urinary tract symptoms; Z79.4 Long term (current) use of insulin; Z79.899 Other long term (current) drug therapy; Z79.891 Long term (current) use of opiate analgesic; Z95.5 Presence of coronary angioplasty implant and graft; Z79.890 Hormone replacement therapy; K04.7 Periapical abscess without sinus; Z87.891 Personal history of nicotine dependence; I71.40 Abdominal aortic aneurysm, without rupture, unspecified
CPT/HCPCS: 36415; 71045; 80048; 80061; 83735; 83880; 84100; 84439; 84443; 84484; 85025; 93005; 96374; 99285; J1644; J1938